=== PATIENT | female | born 1955 | race Two or more races ===

== ENCOUNTER → 2019-07-30 | Outpatient (CLI) | payer OTHER, SELFPAY ==
[2019-07-30 09:20] VITALS: BMI 29.2
--- NOTE | 2019-07-30 09:48 | RAD_ITS ---
We are attempting to reach an attending provider to discuss findings. An addendum with communication details will be sent when the communication is complete. STUDY: X-RAY - RIGHT SHOULDER REASON FOR EXAM: Female, 64 years old. Trauma TECHNIQUE: 3 view(s) of the shoulder. COMPARISON: None. FINDINGS: There is a comminuted fracture of the proximal humerus through the surgical neck with avulsion of the greater trochanter. The humeral head is located. Glenoid, scapula and AC joints are intact. Clavicle is intact and located. RAD/Shoulder min 2 Views IMPRESSION: Comminuted fracture of the proximal humerus. Electronically Signed: Yaya Tolliver, at 17:08 EDT Tel , Service support ,
--- NOTE | 2019-07-30 09:48 | RAD_ITS ---
STUDY: X-RAY - RIGHT WRIST REASON FOR EXAM: Female, 64 years old. Fall TECHNIQUE: 3 view(s) of the wrist were obtained. COMPARISON: None. FINDINGS: Normal visualized distal radius. Possible old avulsion fracture involving the tip of the ulnar styloid. Normal radiocarpal articulation. Normal distal radioulnar articulation. Small cyst in the lunate. Normal carpal articulations. Normal carpometacarpal articulation of the thumb. Normal second through fifth carpometacarpal articulations. Normal visualized metacarpal bones. The soft tissue structures are unremarkable. 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 RAD/Wrist min 3 Views IMPRESSION: No acute bone injury of the wrist. Electronically Signed: Popeye Galindo DO at 23:35 EDT Tel [phone], Service support ,
== END | disposition home or self-care (01) ==
LOC: HPRAD 09:47
PROVIDERS: Referring Provider Orthopaedic Surgery; Visit Provider Orthopaedic Surgery
DX: M25.511 Pain in right shoulder (principal); M79.641 Pain in right hand
CPT/HCPCS: 73030; 73110